=== PATIENT | female | born 1935 | race Two or more races ===

== ENCOUNTER 2024-06-14 18:29 | Emergency (ER) | payer OTHER ==
[~2024-06-14] VITALS: Ht 165.1 cm; Wt 81.6 kg
[2024-06-14] MEDS ORDERED: PLAVIX75 MG (18:38)
[2024-06-14] MEDS ORDERED: GLUMETZA500 MG (18:38)
[2024-06-14] MEDS ORDERED: CHILDREN'S ASPI81 MG (18:38)
[2024-06-14] MEDS ORDERED: GRALISE600 MG (18:38)
[2024-06-14] MEDS ORDERED: COZAAR50 MG (18:39)
[2024-06-14] MEDS ORDERED: PENTOXIFYLLINE400 MG (18:39)
[2024-06-14] MEDS ORDERED: TOPROL XL50 M1 (18:39)
[2024-06-14] MEDS ORDERED: ATORVASTATIN CA20 MG (18:39)
[2024-06-14] MEDS ORDERED: TRIAMTERENE-HC1 EAC1 (18:40)
[2024-06-14] MEDS ORDERED: PEPCID AC20 MG (18:40)
[2024-06-14] MEDS ORDERED: ORPHENADRINE CITRATE 30 MG/ML AMPUL IM STA (19:41)
[2024-06-14] MEDS ORDERED: ORPHENADRINE CITRATE 30 MG/ML AMPUL ONE (19:45)
== END 2024-06-14 21:14 | disposition home or self-care (01) ==
LOC: ER 18:31
DX: M54.2 Cervicalgia (principal)
CPT/HCPCS: 72040; 96372; 99283; J2360